=== PATIENT | female | born 1970 ===

== ENCOUNTER 2016-11-04 17:01 | Observation (INO) | payer MEDICAID ==
[2016-11-04] MEDS ORDERED: Sodium Chloride 0.9% 1,000 ML IV STA (17:16)
--- NOTE | 2016-11-04 17:23 | ED PDOC ---
Syncope/Near Syncope/Dizzyness Time Seen by Provider: 11/04/16 17:10 Chief Complaint (Nursing): Syncope Chief Complaint (Provider): syncope History Per: Patient History/Exam Limitations: no limitations Onset/Duration Of Symptoms: Mins Additional Complaint(s): Rosalba Mohr is a 45 year old female, with no previous medical history, who presents to the ED via EMS after experiencing one syncopal episode secondary to seeing blood when she was wiping her stool. Patient reports undergoing a hermorrhoidectomy 2 days prior. Patient claims to hitting her head on the bathtub during syncopal episode and denies any recollection of events following. Patient denies any chest pain, shortness or breath or palpitations. PMD: Galen South MD Past Medical History Reviewed: Historical Data, Nursing Documentation, Vital Signs Vital Signs: Last Vital Signs Temp 98.0 F 11/04/16 17:04 Pulse 67 11/04/16 17:04 Resp 16 11/04/16 17:04 BP 128/79 11/04/16 17:04 Pulse Ox 100 11/04/16 17:04 - Medical History PMH: No Chronic Diseases - Surgical History Other surgeries: hemorhhoidectomy - Family History Family History: States: Unknown Family Hx - Immunization History Hx Tetanus Toxoid Vaccination: No - Home Medications Home Medications: Ambulatory Orders Medication Instructions Recorded oxyCODONE/Acetaminophen [Percocet 1 tab PO Q6H PRN 11/04/16 5/325 mg Tab] - Allergies Allergies/Adverse Reactions: Allergies Allergy/AdvReac Type Severity Reaction Status Date / Time No Known Allergies Allergy Verified 11/04/16 17:04 Review of Systems ROS Statement: Except As Marked, All Systems Reviewed And Found Negative Cardiovascular: Negative for: Chest Pain, Palpitations Respiratory: Negative for: Shortness of Breath Physical Exam - Reviewed Nursing Documentation Reviewed: Yes Vital Signs Reviewed: Yes - Physical Exam Appears: Positive for: Well, Non-toxic, No Acute Distress Head Exam: Positive for: ATRAUMATIC, NORMAL INSPECTION, NORMOCEPHALIC Skin: Positive for: Normal Color, Warm, Dry Eye Exam: Positive for: Normal appearance, EOMI, PERRL. Negative for: Nystagmus Neck: Positive for: Normal, Painless ROM, Supple Cardiovascular/Chest: Positive for: Regular Rate, Rhythm Respiratory: Positive for: Normal Breath Sounds Pulses-Dorsalis Pedis (L): 2+ Pulses-Dorsalis Pedis (R): 2+ Pulses-Radial (L): 2+ Pulses-Radial (R): 2+ Gastrointestinal/Abdominal: Positive for: Normal Exam, Bowel Sounds, Soft Back: Positive for: Normal Inspection. Negative for: Vertebral Tenderness Extremity: Positive for: Normal ROM, Capillary Refill (< 2 seconds). Negative for: Tenderness, Pedal Edema, Calf Tenderness, Deformity, Swelling Neurologic/Psych: Positive for: Alert, electrolog operator II-XII (intact ), Oriented, Cerebellar Tests (good ). Negative for: Motor/Sensory Deficits, Facial Droop - Laboratory Results Result Diagrams: 11/04/16 17:39 11/04/16 17:39 - ECG ECG Rhythm: Positive for: Sinus Rhythm. Negative for: ST/T Changes Rate: 70 (bpm) O2 Sat by Pulse Oximetry: 100 (RA) Pulse Ox Interpretation: Normal Medical Decision Making Medical Decision Making: Initial Plan: * CT head w/o contrast * EKG * labs * urine * urine dipstick * IV NS 1,000 ml at 100 ml/hr * reevaluation Scribe Attestation: Documented by Lis Marks, acting as a scribe for Eamon Linares MD. Provider Scribe Attestation: All medical record entries made by the Scribe were at my direction and personally dictated by me. I have reviewed the chart and agree that the record accurately reflects my personal performance of the history, physical exam, medical decision making, and the department course for this patient. I have also personally directed, reviewed, and agree with the discharge instructions and disposition. Disposition - Clinical Impression Clinical Impression: Syncope - Patient ED Disposition Is Patient to be Admitted: Yes - Disposition Disposition Time: 19:28 Condition: FAIR - Pt Status Changed To: Hospital Disposition Of: Observation - POA Present On Arrival: None
[2016-11-04 17:45] LABS: BASO # 0.1 K/uL (0.0-0.2); BASO % 0.9 % (0.0-2.0); EOS # 0.1 K/uL (0.0-0.7); LYMPH # 1.4 K/uL (1.0-4.3); LYMPH % 22.8 % (20.0-40.0); MEAN CELL VOLUME 86.8 fl (81.0-99.0); MEAN CORPUSCULAR HEMOGLOBIN 28.7 pg (27.0-31.0); MEAN CORPUSCULAR HGB CONC 33.1 g/dL (33.0-37.0); MEAN PLATELET VOLUME 8.2 fl (7.2-11.7); MONO # 0.6 K/uL (0.0-0.8); MONO % 9.3 % (0.0-10.0); NEUT # 4.1 K/uL (1.8-7.0); NRBC % 0.1 % (0.0-0.0); RED CELL DISTRIBUTION WIDTH 13.9 % (11.5-14.5); WHITE BLOOD COUNT 6.3 K/uL (4.8-10.8)
[2016-11-04 18:08] LABS: ALKALINE PHOSPHATASE 103 U/L (38-126); ALT/SGPT 32 U/L (9-52); AST/SGOT 25 U/L (14-36); BILIRUBIN,TOTAL 0.4 mg/dl (0.2-1.3); BLOOD UREA NITROGEN 13 mg/dl (7-17); CALCIUM 8.8 mg/dL (8.4-10.2); CARBON DIOXIDE 24 mmol/L (22-30); CHLORIDE 106 mmol/L (98-107); GFR AFRICAN-AMERICAN > 60; GLUCOSE,RANDOM 123 mg/dL (65-105); POTASSIUM 3.5 MMOL/L (3.6-5.0); SODIUM 138 mmol/l (132-148); TOTAL PROTEIN 6.9 G/DL (6.3-8.2)
--- NOTE | 2016-11-04 18:40 | CT ---
PROCEDURE: CT HEAD WITHOUT CONTRAST. HISTORY: syncope COMPARISON: None available. TECHNIQUE: Axial computed tomography images were obtained through the head/brain without intravenous contrast. Radiation dose: Total exam DLP = 806.09 mGy-cm. This CT exam was performed using one or more of the following dose reduction techniques: Automated exposure control, adjustment of the mA and/or kV according to patient size, and/or use of iterative reconstruction technique. FINDINGS: HEMORRHAGE: No intracranial hemorrhage. BRAIN: No mass effect or edema. No atrophy or chronic microvascular ischemic changes. VENTRICLES: Unremarkable. No hydrocephalus. CALVARIUM: Unremarkable. PARANASAL SINUSES: Unremarkable as visualized. No significant inflammatory changes. MASTOID AIR CELLS: Unremarkable as visualized. No inflammatory changes. OTHER FINDINGS: None. IMPRESSION: No acute intracranial abnormalities. No significant findings to account for the clinical presentation.
[2016-11-04] MEDS ORDERED: Dextrose 5%/0.9% NS 1,000 ML IV SCH (23:00)
--- NOTE | 2016-11-05 07:03 | CP.PCM.HP ---
History of Present Illness - History of Present Illness History of Present Illness: CC: Near syncope 33F admitted overnight, seen and examined at the bedside this morning with attending. 33F presented with a an episode of "passing out" after having a bowel movement. Pt reports having a hemorrhoidectomy 11/02 at [facility]. She states that she has been so afraid of having a bowel movement because of the pain. She has continued to take the Percocet as prescribed, but has not been eating or drinking much because of her fear. However, she finally ate some oatmeal yesterday, went to have a small BM and when she saw blood began feeling faint. As per patient her son came in and helped her stand because she felt weak and then describes that she "fainted" and struck her head on the bathtub. She denies palpitations, shortness of breath prior to event, but describes weakness involving her entire body, diaphoresis, and some nausea but no vomiting. PMH: hemorrhoids PSH: c-sxn x3, hemorrhoidectomy PFH: non-contributory Allergies: NKDA Medications: See Med Rec Present on Admission - Present on Admission Any Indicators Present on Admission: No Review of Systems - Review of Systems All systems: reviewed and no additional remarkable complaints except - Constitutional Constitutional: Weakness Past Patient History - Past Medical History & Family History Past Medical History?: Yes - Past Social History Smoking Status: Never Smoked - CARDIAC Hx Cardiac Disorders: No - PULMONARY Hx Respiratory Disorders: No - NEUROLOGICAL Hx Neurological Disorder: Yes Hx Syncope: Yes (from this visit 11/04) - HEENT Hx HEENT Problems: No - RENAL Hx Chronic Kidney Disease: No - ENDOCRINE/METABOLIC Hx Endocrine Disorders: No - HEMATOLOGICAL/ONCOLOGICAL Hx Blood Disorders: No - INTEGUMENTARY Hx Dermatological Problems: No - MUSCULOSKELETAL/RHEUMATOLOGICAL Hx Musculoskeletal Disorders: Yes Hx Falls: Yes - GASTROINTESTINAL Hx Gastrointestinal Disorders: No - GENITOURINARY/GYNECOLOGICAL Hx Genitourinary Disorders: No - PSYCHIATRIC Hx Psychophysiologic Disorder: No Hx Substance Use: No - SURGICAL HISTORY Hx Surgeries: Yes Hx Section: Yes (x3) Other/Comment: hemmoroidectomy - ANESTHESIA Hx Anesthesia: No Meds Home Medications: Home Medication List Medication Instructions Recorded Confirmed Type Lidocaine 2% Gel [Xylocaine 2% 1 appl TP BID #1 gel 11/05/16 Rx (Uro-Jet)] Sennosides [Senno] 8.6 mg PO HS #30 tablet 11/05/16 Rx Allergies/Adverse Reactions: Allergies Allergy/AdvReac Type Severity Reaction Status Date / Time No Known Allergies Allergy Verified 11/04/16 17:04 Physical Exam - Constitutional Appears: Well, Non-toxic, No Acute Distress - Head Exam Head Exam: ATRAUMATIC (No evidence of striking bathtub noted), NORMAL INSPECTION - Eye Exam Eye Exam: EOMI, PERRL - ENT Exam ENT Exam: Mucous Membranes Moist, Normal Exam - Neck Exam Neck exam: Positive for: Full Rom, Normal Inspection - Respiratory Exam Respiratory Exam: Clear to Auscultation Bilateral, NORMAL BREATHING PATTERN. absent: Rales, Wheezes - Cardiovascular Exam Cardiovascular Exam: REGULAR RHYTHM. absent: JVD - GI/Abdominal Exam GI & Abdominal Exam: Normal Bowel Sounds, Soft. absent: Distended, Guarding, Rigid - Rectal Exam Rectal Exam: NORMAL INSPECTION (trace small amounts of blood at external anus, NO abnormal bleeding) - Extremities Exam Extremities exam: Positive for: normal capillary refill, normal inspection, pedal pulses present. Negative for: pedal edema - Neurological Exam Neurological exam: Alert, Oriented x3 - Psychiatric Exam Psychiatric exam: Anxious, Normal Mood - Skin Skin Exam: Normal Color, Warm Results - Vital Signs Recent Vital Signs: Last Vital Signs Temp 36.6 C 11/05/16 05:28 Pulse 67 11/05/16 05:28 Resp 20 11/05/16 05:28 BP 104/67 11/05/16 05:28 Pulse Ox 97 11/05/16 05:28 - Labs Result Diagrams: 11/05/16 09:40 11/04/16 17:39 Labs: Laboratory Results - last 24 hr 11/04/16 11/04/16 17:39 17:39 WBC 6.3 RBC 4.26 Hgb 12.2 Hct 37.0 MCV 86.8 MCH 28.7 MCHC 33.1 RDW 13.9 Plt Count 237 MPV 8.2 Neut % (Auto) 65.0 Lymph % (Auto) 22.8 Charles % (Auto) 9.3 Eos % (Auto) 2.0 Baso % (Auto) 0.9 Neut # 4.1 Lymph # 1.4 Charles # 0.6 Eos # 0.1 Baso # 0.1 Sodium 138 Potassium 3.5 L Chloride 106 Carbon Dioxide 24 Anion Gap 12 BUN 13 Creatinine 0.6 L Est GFR ( Amer) > 60 Est GFR (Non-Af Amer) > 60 Random Glucose 123 H Calcium 8.8 Total Bilirubin 0.4 AST 25 ALT 32 Alkaline Phosphatase 103 Total Protein 6.9 Albumin 3.4 L Globulin 3.5 Albumin/Globulin Ratio 1.0 Assessment & Plan (1) S/P hemorrhoidectomy Assessment and Plan: POD#3 from hemorrhoidectomy at [facility]. Pt with of having a bowel movement, she was provided reassurance and instructions for care with appropriate follow up from her surgeon. She was also informed that she may have some bleeding with bowel movements. - Sitz baths - Limit Percocet - Strong bowel regimen - Staying hydrated and eat - Lidocaine 2% gel - Use sanitary pads to protect underwear from minimal staining Status: Acute (2) Vasovagal syncope Assessment and Plan: Most likely transient due to decreased PO intake, emotions, and sight of blood. Physical exam and CT negative for fractures, ICH, masses. - Hydrate - Pain control - Reassurance Status: Acute (3) DVT prophylaxis Assessment and Plan: SCDs b/l continuous Status: Acute
[2016-11-05 07:57] VITALS: RESP 16
--- NOTE | 2016-11-05 08:32 | CARD ---
APPROVED REPORT EKG Measurement Heart [id number] <Conclusion> Normal sinus rhythm Normal ECG
[2016-11-05 10:26] LABS: HEMATOCRIT 36.6 % (34.0-47.0); MEAN CELL VOLUME 86.2 fl (81.0-99.0); MEAN CORPUSCULAR HGB CONC 33.7 g/dL (33.0-37.0); RED CELL DISTRIBUTION WIDTH 14.4 % (11.5-14.5); WHITE BLOOD COUNT 6.8 K/uL (4.8-10.8)
[2016-11-05] MEDS ORDERED: Bisacodyl 5mg EC Tab PO ONE (11:13)
[2016-11-05] MEDS ORDERED: Magnesium Hydroxide Susp 30 ml UD PO SCH (11:15)
[2016-11-05] MEDS ORDERED: Lidocaine 2% GEL TOP SCH (11:15)
[2016-11-05] MEDS ORDERED: Potassium Chloride 40 mEq/30 ml LIQ UD PO ONE (11:21)
--- NOTE | 2016-11-05 12:21 | CP.PCM.DIS ---
Provider - Provider Date of Admission: 11/04/16 17:21 Attending physician: Galen South MD Primary care physician: Galen South MD Time Spent in preparation of Discharge (in minutes): 45 Diagnosis - Discharge Diagnosis (1) Vasovagal syncope Status: Acute Comment: Vasovagal syncope has resolved. Nothing further to follow up. (2) S/P hemorrhoidectomy Status: Acute Comment: POD#3 s/p hemorrhoidectomy at [facility] [address] that patient reports was uneventful. She is now havign difficulty having BM because of fear and pain control. Patient will be discharged with sitz baths, strong bowel regimen , no opioids, and topical pain control. She will then f/u with surgeon as regularly scheduled. Hospital Course - Lab Results Lab Results: Most Recent Lab Values WBC 6.8 K/uL (4.8-10.8) 11/05/16 09:40 RBC 4.25 Mil/uL (3.80-5.20) 11/05/16 09:40 Hgb 12.3 g/dL (12.0-16.0) 11/05/16 09:40 Hct 36.6 % (34.0-47.0) 11/05/16 09:40 MCV 86.2 fl (81.0-99.0) 11/05/16 09:40 MCH 29.0 pg (27.0-31.0) 11/05/16 09:40 MCHC 33.7 g/dL (33.0-37.0) 11/05/16 09:40 RDW 14.4 % (11.5-14.5) 11/05/16 09:40 Plt Count 224 K/uL (130-400) 11/05/16 09:40 MPV 8.2 fl (7.2-11.7) 11/04/16 17:39 Neut % (Auto) 65.0 % (50.0-75.0) 11/04/16 17:39 Lymph % (Auto) 22.8 % (20.0-40.0) 11/04/16 17:39 [place] % (Auto) 9.3 % (0.0-10.0) 11/04/16 17:39 Eos % (Auto) 2.0 % (0.0-4.0) 11/04/16 17:39 Baso % (Auto) 0.9 % (0.0-2.0) 11/04/16 17:39 Neut # 4.1 K/uL (1.8-7.0) 11/04/16 17:39 Lymph # 1.4 K/uL (1.0-4.3) 11/04/16 17:39 [place] # 0.6 K/uL (0.0-0.8) 11/04/16 17:39 Eos # 0.1 K/uL (0.0-0.7) 11/04/16 17:39 Baso # 0.1 K/uL (0.0-0.2) 11/04/16 17:39 Sodium 138 mmol/l (132-148) 11/04/16 17:39 Potassium 3.5 MMOL/L (3.6-5.0) L 11/04/16 17:39 Chloride 106 mmol/L (98-107) 11/04/16 17:39 Carbon Dioxide 24 mmol/L (22-30) 11/04/16 17:39 Anion Gap 12 (10-20) 11/04/16 17:39 BUN 13 mg/dl (7-17) 11/04/16 17:39 Creatinine 0.6 mg/dL (0.7-1.2) L 11/04/16 17:39 Est GFR ( Amer) > 60 11/04/16 17:39 Est GFR (Non-Af Amer) > 60 11/04/16 17:39 POC Glucose (mg/dL) 142 mg/dL (65-110) H 11/04/16 17:16 Random Glucose 123 mg/dL (65-105) H 11/04/16 17:39 Calcium 8.8 mg/dL (8.4-10.2) 11/04/16 17:39 Total Bilirubin 0.4 mg/dl (0.2-1.3) 11/04/16 17:39 AST 25 U/L (14-36) 11/04/16 17:39 ALT 32 U/L (9-52) 11/04/16 17:39 Alkaline Phosphatase 103 U/L (38-126) 11/04/16 17:39 Total Protein 6.9 G/DL (6.3-8.2) 11/04/16 17:39 Albumin 3.4 g/dL (3.5-5.0) L 11/04/16 17:39 Globulin 3.5 gm/dL (2.2-3.9) 11/04/16 17:39 Albumin/Globulin Ratio 1.0 (1.0-2.1) 11/04/16 17:39 - Hospital Course Hospital Course: Patient seen and examined at the bedside with attending. 45F s/p POD#3 hemorrhoidectomy admitted for vasovagal syncope by history and work-up. This was complicated by the patient avoiding eating and drinking for fear of having a bowel movement. Her pain is now controlled, she has been started on an aggressive bowel regimen, and she is stable for discharge to home. Discharge Exam - Head Exam Head Exam: ATRAUMATIC, NORMAL INSPECTION, NORMOCEPHALIC - Eye Exam Eye Exam: EOMI, PERRL - ENT Exam ENT Exam: Mucous Membranes Moist, Normal Exam - Neck Exam Neck exam: Full Rom, Normal Inspection - Respiratory Exam Respiratory Exam: Clear to PA & Lateral, NORMAL BREATHING PATTERN. absent: Rales, Wheezes - Cardiovascular Exam Cardiovascular Exam: REGULAR RHYTHM. absent: JVD - GI/Abdominal Exam GI & Abdominal Exam: Normal Bowel Sounds, Soft. absent: Distended, Tenderness - Rectal Exam Rectal Exam: absent: NORMAL INSPECTION (trace blood around anus, c/w post-op changes, no abnormal edema noted) - Neurological Exam Neurological exam: Alert, Oriented x3 - Psychiatric Exam Psychiatric exam: Anxious, Normal Affect, Normal Mood - Skin Skin Exam: Normal Color, Warm Discharge Plan - Discharge Medications Prescriptions: Lidocaine 2% Gel [Xylocaine 2% (Uro-Jet)] 1 appl TP BID #1 gel Sennosides [Senno] 8.6 mg PO HS #30 tablet - Follow Up Plan Condition: GOOD Disposition: HOME/ ROUTINE Patient education suggested?: Yes Instructions: High Fiber Diet (DC), Sitz Bath (DC) Referrals: Galen South MD [Primary Care Provider] -
[2016-11-05 16:16] VITALS: BP 104/70; PULSE 71; TEMP 98.4; O2SAT 98
== END 2016-11-05 17:45 | disposition home or self-care (01) ==
LOC: H.ER 17:01 → H.ERHOLD 17:21 → H.TEL 20:58
PROVIDERS: ADMIT Family Medicine; ATTEND Family Medicine
DX: R55 Syncope and collapse (principal)

== ENCOUNTER 2017-04-24 01:49 | Emergency (ER) | payer MEDICAID ==
[2017-04-24 02:03] VITALS: BP 134/81; PULSE 104; RESP 16; TEMP 99.8; O2SAT 99
[2017-04-24] MEDS ORDERED: Amoxicillin-Clav 875-125 mg Tab PO STA (02:08)
[2017-04-24] MEDS ORDERED: Dexamethasone 4 mg/1 ml IM STA (02:08)
--- NOTE | 2017-04-24 02:10 | ED PDOC ---
HPI: General Adult Time Seen by Provider: 04/24/17 02:00 Chief Complaint (Nursing): Flu-like Symptoms Chief Complaint (Provider): sore throat History Per: Patient Additional Complaint(s): 46-year-old female presents to emergency department with 4 day history of sore throat and swelling of tonsils. Patient has pain when swallowing. She also complains of tactile fever and slight dry cough. Patient took Tylenol earlier which seemed to help the pain a little bit. No recent travel, no recent sick contacts. Past Medical History Reviewed: Historical Data, Nursing Documentation, Vital Signs Vital Signs: Last Vital Signs Temp 99.8 F H 04/24/17 02:01 Pulse 104 H 04/24/17 02:01 Resp 16 04/24/17 02:01 BP 134/81 04/24/17 02:01 Pulse Ox 99 04/24/17 02:31 - Medical History PMH: No Chronic Diseases - Surgical History Surgical History: (x 3) - Family History Family History: States: No Known Family Hx - Living Arrangements Living Arrangements: With Family - Social History Current smoker - smoking cessation education provided: No Alcohol: None Drugs: Denies - Home Medications Home Medications: Ambulatory Orders Medication Instructions Recorded oxyCODONE/Acetaminophen [Percocet 1 tab PO Q6H PRN 11/04/16 5/325 mg Tab] Lidocaine 2% Gel [Xylocaine 2% 1 appl TP BID #1 gel 11/05/16 (Uro-Jet)] Sennosides [Senno] 8.6 mg PO HS #30 tablet 11/05/16 Amoxicillin/Clavulanate [Augmentin 1 tab PO BID #14 tab 04/24/17 875 MG-125 MG] predniSONE [Prednisone] 10 mg PO BID #10 tab 04/24/17 - Allergies Allergies/Adverse Reactions: Allergies Allergy/AdvReac Type Severity Reaction Status Date / Time No Known Allergies Allergy Verified 11/04/16 17:04 Review of Systems ROS Statement: Except As Marked, All Systems Reviewed And Found Negative Constitutional: Positive for: Fever (tactile) ENT: Positive for: Throat Pain, Throat Swelling Respiratory: Positive for: Cough (dry, slight) Gastrointestinal: Negative for: Vomiting, Abdominal Pain, Diarrhea Neurological: Negative for: Headache, Dizziness Physical Exam - Reviewed Nursing Documentation Reviewed: Yes Vital Signs Reviewed: Yes - Physical Exam Appears: Positive for: Well, Non-toxic, No Acute Distress Head Exam: Positive for: ATRAUMATIC, NORMAL INSPECTION Skin: Negative for: Rash Eye Exam: Positive for: Normal appearance ENT: Positive for: Pharyngeal Erythema, Tonsillar Exudate, Tonsillar Swelling Cardiovascular/Chest: Positive for: Regular Rate, Rhythm Respiratory: Positive for: Normal Breath Sounds. Negative for: Wheezing, Respiratory Distress Extremity: Positive for: Normal ROM Lymphatic: Positive for: Adenopathy (Bilateral anterior cervical lymphadenopathy ) Neurologic/Psych: Positive for: Alert, Oriented - ECG O2 Sat by Pulse Oximetry: 99 Pulse Ox Interpretation: Normal Medical Decision Making Medical Decision Making: Impression: tonsillitis Plan: IM decadron PO motrin PO augmentin Rx prednisone and augmentin given. Advised, fluids, rest and follow up with PMD in 2-3 days. Disposition - Clinical Impression Clinical Impression: Tonsillitis - Patient ED Disposition Is Patient to be Admitted: No Counseled Patient/Family Regarding: Studies Performed, Diagnosis, Need For Followup, Rx Given - Disposition Referrals: [facility] [Outside] Disposition: Routine/Home Disposition Time: 02:12 Condition: STABLE Additional Instructions: Take rx meds as directed. Take over the counter advil for pain and/or fever. Rest and drink plenty of fluids. Follow up in 2-3 days with clinic or with primary care doctor. Prescriptions: Amoxicillin/Clavulanate [Augmentin 875 MG-125 MG] 1 tab PO BID #14 tab predniSONE [Prednisone] 10 mg PO BID #10 tab Instructions: Tonsillitis (ED) Forms: [employer] (Estonian)
[2017-04-24] MEDS ORDERED: Amoxicillin-Clav 875-125 mg Tab PO ONE (02:14)
== END 2017-04-24 02:30 | disposition home or self-care (01) ==
LOC: H.ER 01:49
DX: J03.90 Acute tonsillitis, unspecified (principal)
CPT/HCPCS: 87070; 96372; 99282; J1100

== ENCOUNTER 2018-10-17 19:17 | Emergency (ER) | payer MEDICAID ==
[2018-10-17 19:46] VITALS: RESP 18; TEMP 98.4
--- NOTE | 2018-10-17 20:35 | ED PDOC ---
HPI: Allergic Reaction Time Seen by Provider: 10/17/18 20:10 Chief Complaint (Nursing): Allergic Reaction Chief Complaint (Provider): allergic reaction History Per: Patient History/Exam Limitations: no limitations Onset/Duration Of Symptoms: Hrs Current Symptoms Are (Timing): Better Possible Cause: Food Associated Symptoms: Swelling, Itching, Redness Additional Complaint(s): 47 y/o female presents for evaluation of possible allergic reaction, onset at 18:00. Patient states she ate Pork for dinner around 17:30, and then approximately a half hour later she began to feel nauseous, so she went to the bathroom and forced herself to throw up and then she noticed swelling around right eye with associated itching, facial flushing, and itching to throat. Denies rash, difficulty speaking/swallowing, chest pain, shortness of breath, palpitations, abdominal pain, changes in bowel movements. Past Medical History Reviewed: Historical Data, Nursing Documentation, Vital Signs Vital Signs: Last Vital Signs Temp 98.4 F 10/17/18 19:41 Pulse 81 10/17/18 19:41 Resp 18 10/17/18 19:41 BP 118/79 10/17/18 19:41 Pulse Ox 98 10/17/18 19:41 - Medical History PMH: No Chronic Diseases - Surgical History Surgical History: (x 3) - Family History Family History: States: No Known Family Hx - Home Medications Home Medications: Ambulatory Orders Medication Instructions Recorded oxyCODONE/Acetaminophen [Percocet 1 tab PO Q6H PRN 11/04/16 5/325 mg Tab] Lidocaine 2% Gel [Xylocaine 2% 1 appl TP BID #1 gel 11/05/16 (Uro-Jet)] Sennosides [Senno] 8.6 mg PO HS #30 tablet 11/05/16 Amoxicillin/Clavulanate [Augmentin 1 tab PO BID #14 tab 04/24/17 875 MG-125 MG] predniSONE [Prednisone] 10 mg PO BID #10 tab 04/24/17 Prednisone 50 mg PO DAILY #4 tablet 10/17/18 - Allergies Allergies/Adverse Reactions: Allergies Allergy/AdvReac Type Severity Reaction Status Date / Time diphenhydramine Allergy SWELLING Verified 10/17/18 19:42 [From Benadryl] Review of Systems ROS Statement: Except As Marked, All Systems Reviewed And Found Negative Eyes: Positive for: Eyelid Inflammation Physical Exam - Reviewed Nursing Documentation Reviewed: Yes Vital Signs Reviewed: Yes - Physical Exam Appears: Positive for: Well, Non-toxic, No Acute Distress Head Exam: Positive for: ATRAUMATIC, NORMAL INSPECTION, NORMOCEPHALIC Skin: Positive for: Normal Color Eye Exam: Positive for: EOMI, PERRL, Periorbital swelling (right infraorbital edema). Negative for: Periorbital tenderness, Conjunctival injection ENT: Positive for: Normal ENT Inspection Cardiovascular/Chest: Positive for: Regular Rate, Rhythm Respiratory: Positive for: Normal Breath Sounds Gastrointestinal/Abdominal: Positive for: Normal Exam Back: Positive for: Normal Inspection Extremity: Positive for: Normal ROM Neurological/Psych: Positive for: Awake, Alert, Oriented (x3) - ECG O2 Sat by Pulse Oximetry: 98 - Progress ED Course And Treament: -IV solumedrol -IV pepcid -ice application On re-eval, patient states she is feeling better. Right eye swelling visibly improving. Left eye infraorbital swelling now noted, mild Patient educated on findings, discharged with rx Prednisone Advised to continue ice application Follow up PMD/[employer] within 2-3 days Return precautions given Disposition - Clinical Impression Clinical Impression: Allergic reaction - Patient ED Disposition Is Patient to be Admitted: No Counseled Patient/Family Regarding: Diagnosis, Need For Followup, Rx Given - Disposition Disposition: Routine/Home Disposition Time: 22:05 Condition: IMPROVED Prescriptions: Prednisone 50 mg PO DAILY #4 tablet Instructions: Food Allergy, Angioedema Forms: [facility] (Slovenian), [facility] ED School/Work Excuse
[2018-10-17 22:16] VITALS: BP 128/78; PULSE 90; O2SAT 96
== END 2018-10-17 22:20 | disposition home or self-care (01) ==
LOC: H.ER 19:17
DX: T78.40XA Allergy, unspecified, initial encounter (principal); Z88.8 Allergy status to other drugs, medicaments and biological substances
CPT/HCPCS: 81025; 96374; 96375; 99284; J2930